=== PATIENT | female | born 1970 | race Two or more races ===

== ENCOUNTER 2023-09-28 17:49 | Emergency (ER) | payer OTHER ==
[~2023-09-28] VITALS: Ht 165.1 cm; Wt 73.0 kg
[2023-09-28] MEDS ORDERED: METOCLOPRAMIDE HCL 10 MG in DEXTROSE 5 % IN WATER 50 ML IV ONE (19:15)
[2023-09-28] MEDS ORDERED: METHYLPREDNISOLONE SOD SUCC 125 MG VIAL IV ONE (19:15)
[2023-09-28] MEDS ORDERED: 0.9 % SODIUM CHLORIDE 500 ML IV ONE (19:15)
[2023-09-28] MEDS ORDERED: FAMOTIDINE/PF 20 MG/2 ML VIAL IV ONE (19:15)
[2023-09-28 19:50] LABS: HEMATOCRIT 31.4 % (36.0-45.00); HEMOGLOBIN 10.4 g/dL (12.0-15.00); MEAN CELL VOLUME 80.3 fL (80.00-100.00); MEAN CORPUSCULAR HEMOGLOBIN 26.7 pg (27.00-32.0); MEAN CORPUSCULAR HGB CONC 33.2 g/dl (32.0-36.0); PLATELET COUNT 359 K/uL (150-450); RED BLOOD COUNT 3.91 M/uL (4.00-6.00); RED CELL DISTRIBUTION WIDTH 15.6 % (11.5-14.5)
[2023-09-28 20:29] LABS: URINE APPEARANCE Clear; URINE BILIRRUBIN Negative (NEGATIVE); URINE BLOOD Trace; URINE COLOR Yellow; URINE GLUCOSE Negative (NEGATIVE); URINE LEUKOCYTE Small; URINE NITRATE Negative; URINE PROTEIN Negative (NEGATIVE); URINE UROBILINOGEN 0.2 E.U./dl
[2023-09-28 20:33] LABS: URINE BACTERIA 231.7 uL (0.0-1933); URINE EPITHELIAL CELLS 32.4 uL (0.0-38.8); URINE WBC 33.5 uL (0.0-23.2)
[2023-09-28 20:44] LABS: ALBUMIN 3.8 gm/dL (3.4-5.0); BILIRUBIN TOTAL 0.81 mg/dL (0.3-1.2); CALCIUM 9.1 mg/dL (8.5-10.1); CREATININE SERUM 0.78 mg/dL (0.55-1.02); GFR 77.86; GLOBULINA 3.4 G/DL (2.4-3.5); POTASSIUM 3.58 mEq/L (3.5-5.1); TOTAL PROTEIN 7.2 gm/dL (6.4-8.2)
[2023-09-28] MEDS ORDERED: METRONIDAZOLE500 MG PO (22:59)
[2023-09-28] MEDS ORDERED: CIPRO500 MG PO (22:59)
[2023-09-28] MEDS ORDERED: INTESTINEX680 M1 PO (22:59)
[2023-09-28] MEDS ORDERED: DICYCLOMINE HCL 20 MG TABLET PO ONE (23:00)
[2023-09-28] MEDS ORDERED: CEFTRIAXONE SODIUM 1,000 MG VIAL IV ONE (23:00)
[2023-09-28] MEDS ORDERED: ONDANSETRON ODT8 MG SL (23:00)
[2023-09-28] MEDS ORDERED: METRONIDAZOLE/SODIUM CHLORIDE 500 MG/100 ML PIGGYBACK IV ONE (23:00)
[2023-09-28] MEDS ORDERED: ONDANSETRON ODT8 MG PO (23:01)
== END 2023-09-29 00:22 ==
LOC: ER 17:49
PROVIDERS: Nurse Practitioner Family
DX: K57.32 Diverticulitis of large intestine without perforation or abscess without bleeding (principal); R10.13 Epigastric pain

== ENCOUNTER 2024-01-17 09:47 | Emergency (ER) | payer OTHER ==
[~2024-01-17] VITALS: Ht 165.1 cm; Wt 68.0 kg
[~2024-01-17 09:47] MED LIST: CIPRO500 MG PO; INTESTINEX680 M1 PO; METRONIDAZOLE500 MG PO; ONDANSETRON ODT8 MG PO; ONDANSETRON ODT8 MG SL
[2024-01-17] MEDS ORDERED: LINZESS290 MCG PO (10:15)
[2024-01-17 11:52] LABS: HEMOGLOBIN 9.1 g/dL (12.0-15.00); MEAN CORPUSCULAR HEMOGLOBIN 23.6 pg (27.00-32.0); MEAN CORPUSCULAR HGB CONC 32.4 g/dl (32.0-36.0); PLATELET COUNT 340 K/uL (150-450); RED BLOOD COUNT 3.83 M/uL (4.00-6.00); RED CELL DISTRIBUTION WIDTH 17.5 % (11.5-14.5)
[2024-01-17] MEDS ORDERED: DICYCLOMINE HCL 20 MG TABLET PO STA (12:00)
[2024-01-17 12:24] LABS: CALCIUM 9.1 mg/dL (8.5-10.1); CREATININE SERUM 0.72 mg/dL (0.55-1.02); GFR 85.06; POTASSIUM 3.87 mEq/L (3.5-5.1)
[2024-01-17 12:32] LABS: URINE APPEARANCE Clear; URINE BILIRRUBIN Negative (NEGATIVE); URINE BLOOD Negative; URINE COLOR Yellow; URINE GLUCOSE Negative (NEGATIVE); URINE LEUKOCYTE Trace; URINE NITRATE Negative; URINE PROTEIN Negative (NEGATIVE); URINE UROBILINOGEN 0.2 E.U./dl
[2024-01-17 12:37] LABS: URINE BACTERIA 302.3 uL (0.0-1933); URINE WBC 17.6 uL (0.0-23.2)
[2024-01-17 12:46] LABS: URINE RBC 1.9 uL (0.0-20.8)
[2024-01-17] MEDS ORDERED: FAMOtidine 10 MG/ML (4ML VIAL) IV STA (16:31)
[2024-01-17] MEDS ORDERED: 0.9 % SODIUM CHLORIDE 1,000 ML IV STA (16:32)
[2024-01-17] MEDS ORDERED: HYOSCYAMINE SULFATE 0.125 MG TAB.SUBL SL ONE (17:00)
== END 2024-01-17 14:19 | disposition home or self-care (01) ==
LOC: ER 09:48
PROVIDERS: General Practice
DX: N39.0 Urinary tract infection, site not specified (principal); R10.2 Pelvic and perineal pain; R10.9 Unspecified abdominal pain; Z88.6 Allergy status to analgesic agent

== ENCOUNTER 2024-04-16 09:44 | Outpatient (CLI) | payer OTHER ==
[~2024-04-16 09:44] MED LIST changes: +LINZESS290 MCG PO
== END 2024-04-17 14:13 | disposition home or self-care (01) ==
LOC: RAD 09:44
PROVIDERS: ATTEND Obstetrics & Gynecology
DX: M25.562 Pain in left knee (principal)
CPT/HCPCS: 73721

== ENCOUNTER 2024-05-02 08:08 | Outpatient (CLI) | payer OTHER | END 2024-05-02 08:16 | disposition home or self-care (01) | LOC: MAMO-SONO 08:08 | PROVIDERS: ATTEND Obstetrics & Gynecology | DX: N60.11 Diffuse cystic mastopathy of right breast (principal) ==

== ENCOUNTER 2024-08-29 14:06 | Outpatient (CLI) | payer OTHER ==
[2024-08-31] MEDS ORDERED: TRULANCE3 MG PO (12:39)
== END 2024-08-29 14:20 | disposition home or self-care (01) ==
LOC: RAD 14:06
PROVIDERS: ATTEND Obstetrics & Gynecology Gynecology
DX: Z01.818 Encounter for other preprocedural examination (principal)

== ENCOUNTER 2024-08-31 14:15 | Inpatient (IN) | payer OTHER ==
[~2024-08-31] VITALS: Ht 165.1 cm; Wt 70.3 kg
[2024-08-31 12:39] VITALS: BP 97/70
[~2024-08-31 14:15] MED LIST changes: +TRULANCE3 MG PO
[2024-09-05] MEDS ORDERED: LIDOCAINE HCL 1%/EPINEPHRINE 20ML VIAL IJ ONE (07:13)
[2024-09-05] MEDS ORDERED: BUPIVACAINE HCL/MPF 0.5% 30ML VIAL ONE (07:13)
[2024-09-05] MEDS ORDERED: CHLORHEXIDINE GLUCONATE 120 ML BOTTLE TOP ONE ×2 (07:13→09:00)
[2024-09-05] MEDS ORDERED: HEMOSTATIC MATRIX 1 KIT KIT TOP ONE (07:13)
[2024-09-05] MEDS ORDERED: POVIDONE-IODINE 118 ML BOTT TOP ONE ×2 (07:13→09:30)
[2024-09-05] MEDS ORDERED: CEFAZOLIN SODIUM 1,000 MG VIAL ONE (07:14)
[2024-09-05] MEDS ORDERED: SURGIFLO APPLICATOR 1 EACH APPL TOP ONE (07:34)
[2024-09-05] MEDS ORDERED: LIDOCAINE HCL 1% 20 ML VIAL IJ ONE (07:34)
[2024-09-05] MEDS ORDERED: CEFAZOLIN SODIUM 2,000 MG in DEXTROSE 5 % IN WATER 100 ML IV ONE (09:00)
[2024-09-05] MEDS ORDERED: CEFAZOLIN SODIUM 1,000 MG VIAL IV ONE (09:00)
[2024-09-05] MEDS ORDERED: METHYLENE BLUE 50MG/10ML AMP IV ONE (09:39)
[2024-09-05] MEDS ORDERED: SUGAMMADEX SODIUM 200 MG/2 ML VIAL IV ONE (10:43)
[2024-09-05] MEDS ORDERED: MORPHINE SULFATE 4 MG/ML VIAL IV ONE ×2 (11:50→13:15)
[2024-09-05] MEDS ORDERED: PROMETHAZINE HCL 25 MG/ML AMPUL IV SCH (12:00)
[2024-09-05] MEDS ORDERED: MEPERIDINE HCL/PF 25 MG/ML VIAL IV SCH (13:00)
[2024-09-05 16:28] VITALS: BP 97/60
[2024-09-05] MEDS ORDERED: SIMETHICONE 125 MG CAPSULE PO SCH (17:00)
[2024-09-05] MEDS ORDERED: ENOXAPARIN SODIUM 40 MG/0.4 ML SYRINGE SUBCUTANEO SCH (21:00)
[2024-09-05 22:14] LABS: HEMATOCRIT 22.9 % (36.0-45.00); MEAN CELL VOLUME 76.5 fL (80.00-100.00); MEAN CORPUSCULAR HGB CONC 32.8 g/dl (32.0-36.0); PLATELET COUNT 307 K/uL (150-450); RED BLOOD COUNT 2.99 M/uL (4.00-6.00); RED CELL DISTRIBUTION WIDTH 16.1 % (11.5-14.5)
[2024-09-05 22:15] LABS: HEMOGLOBIN 7.5 g/dL (12.0-15.00)
[2024-09-05 22:30] LABS: BILIRUBIN TOTAL 0.56 mg/dL (0.3-1.2); CALCIUM 8.4 mg/dL (8.5-10.1); CREATININE SERUM 0.62 mg/dL (0.55-1.02); GFR 101.08; GLOBULINA 2.7 G/DL (2.4-3.5); POTASSIUM 4.32 mEq/L (3.5-5.1); TOTAL PROTEIN 5.7 gm/dL (6.4-8.2)
[2024-09-05] MEDS ORDERED: SOD FERRIC GLUC COMPLX/SUCROSE 125 MG in 0.9 % SODIUM CHLORIDE 100 ML IV SCH (22:39)
[2024-09-06] VITALS: BP 98/63
[2024-09-06] MEDS ORDERED: SOD FERRIC GLUC COMPLX/SUCROSE 62.5 MG/5 ML AMPUL IV ONE ×2 (02:25→02:43)
[2024-09-06] MEDS ORDERED: RINGERS SOLUTION,LACTATED 1,000 ML IV.SOLN ONE (07:46)
[2024-09-06] MEDS ORDERED: OxyCODONE HCL/APAP UD (PERCOCET) PO STA (08:07)
[2024-09-06 08:32] LABS: MEAN CELL VOLUME 77.5 fL (80.00-100.00); MEAN CORPUSCULAR HGB CONC 31.9 g/dl (32.0-36.0); PLATELET COUNT 304 K/uL (150-450); RED BLOOD COUNT 3.02 M/uL (4.00-6.00); RED CELL DISTRIBUTION WIDTH 16.2 % (11.5-14.5)
[2024-09-06 08:33] LABS: MEAN CORPUSCULAR HEMOGLOBIN 24.8 pg (27.00-32.0)
[2024-09-06 08:34] LABS: HEMATOCRIT 23.4 % (36.0-45.00); HEMOGLOBIN 7.5 g/dL (12.0-15.00)
[2024-09-06 08:38] VITALS: BP 140/70
[2024-09-06] MEDS ORDERED: BISACODYL 5 MG TABLET.EC PO SCH (09:00)
[2024-09-06] MEDS ORDERED: GABAPENTIN 300 MG CAPSULE PO SCH (09:00)
[2024-09-06 09:52] LABS: ALBUMIN 2.8 gm/dL (3.4-5.0); BILIRUBIN TOTAL 0.57 mg/dL (0.3-1.2); CALCIUM 8.4 mg/dL (8.5-10.1); CREATININE SERUM 0.66 mg/dL (0.55-1.02); GFR 94.04; GLOBULINA 2.7 G/DL (2.4-3.5); POTASSIUM 4.17 mEq/L (3.5-5.1); TOTAL PROTEIN 5.5 gm/dL (6.4-8.2)
[2024-09-06 16:36] VITALS: BP 95/61
[2024-09-06 19:13] LABS: HEMATOCRIT 29.6 % (36.0-45.00); HEMOGLOBIN 9.5 g/dL (12.0-15.00); MEAN CELL VOLUME 80.2 fL (80.00-100.00); MEAN CORPUSCULAR HEMOGLOBIN 25.7 pg (27.00-32.0); PLATELET COUNT 284 K/uL (150-450); RED BLOOD COUNT 3.69 M/uL (4.00-6.00); RED CELL DISTRIBUTION WIDTH 16.4 % (11.5-14.5)
[2024-09-07] VITALS: BP 99/64
[2024-09-07 08:00] VITALS: BP 101/61
[2024-09-07] MEDS ORDERED: BUTALB/ACETAMINOPHEN/CAFFEINE 1 TAB TABLET PO NR (08:30)
[2024-09-07] MEDS ORDERED: SOD FERRIC GLUC COMPLX/SUCROSE 125 MG in 0.9 % SODIUM CHLORIDE 100 ML IV SCH (09:00)
== END 2024-09-07 10:50 | disposition home or self-care (01) | DRG 742 ==
LOC: O/R 09-05 05:32 → OB/GYN 09-05 05:32 → SURH 09-05 08:30 → OB/GYN 09-05 13:49 → SURH 09-05 16:54 → OB/GYN 09-07 10:50
PROVIDERS: ADMIT Obstetrics & Gynecology; ATTEND Obstetrics & Gynecology
PROC: 0UT74ZZ Resection of Bilateral Fallopian Tubes, Percutaneous Endoscopic Approach (ICD-10-PCS; 2024-09-05)
PROC: 0UT04ZZ Resection of Right Ovary, Percutaneous Endoscopic Approach (ICD-10-PCS; 2024-09-05)
PROC: 0JQC0ZZ Repair Pelvic Region Subcutaneous Tissue and Fascia, Open Approach (ICD-10-PCS; 2024-09-05)
PROC: 0UT94ZZ Resection of Uterus, Percutaneous Endoscopic Approach (ICD-10-PCS; principal; 2024-09-05 08:30)
PROC: 30233N1 Transfusion of Nonautologous Red Blood Cells into Peripheral Vein, Percutaneous Approach (ICD-10-PCS; 2024-09-06)
DX: D25.9 Leiomyoma of uterus, unspecified (principal); D62 Acute posthemorrhagic anemia; N93.9 Abnormal uterine and vaginal bleeding, unspecified; N80.03 Adenomyosis of the uterus

== ENCOUNTER 2025-06-18 09:40 | Emergency (ER) | payer OTHER ==
[~2025-06-18] VITALS: Ht 165.1 cm; Wt 71.7 kg
[2025-06-18 09:51] VITALS: BP 133/83; O2SAT 99
[2025-06-18] MEDS ORDERED: 0.9 % SODIUM CHLORIDE 1,000 ML IV SCH (10:30)
[2025-06-18] MEDS ORDERED: ONDANSETRON HCL 2 MG/ML VIAL IV ONE (10:30)
[2025-06-18] MEDS ORDERED: FAMOTIDINE/PF 20 MG/2 ML VIAL IV PUSH ONE (10:30)
[2025-06-18] MEDS ORDERED: MORPHINE SULFATE 2 MG/ML SYRINGE IV ONE (10:30)
[2025-06-18] MEDS ORDERED: FAMOTIDINE/PF 20 MG/2 ML VIAL ONE (10:38)
[2025-06-18] MEDS ORDERED: ONDANSETRON HCL 2 MG/ML VIAL ONE (10:40)
[2025-06-18 11:42] LABS: BASO % 0.6 % (0.1-1.2); EOS # 0.06 (0.04-0.54); EOS % 0.7 % (0.7-7.0); LYMPH # 1.58 (1.18-3.74); LYMPH % 17.9 % (19.3-53.1); MEAN PLATELET VOLUME 10.20 fl (9.4-12.4); MONO # 0.52 (0.24-0.82); MONO % 5.9 % (4.7-12.5); NEUT # 6.61 (1.56-6.13); NEUT % 74.7 % (34.0-71.1); RED CELL DISTRIBUTION WIDTH 13.5 % (11.6-14.4)
[2025-06-18 11:47] LABS: ERYTHROCYTE SEDIMENTATION RATE 38 mm/hr (0-30)
[2025-06-18 12:37] LABS: ALT/SGPT 30.0 U/L (12-78); AST/SGOT 21.0 U/L (15-37); BILIRUBIN TOTAL 1.02 mg/dL (0.3-1.2); BUN CREA RATIO 17.0 (7.0-25.0); CREATININE SERUM 0.72 mg/dL (0.55-1.02); GFR 84.73; GLOBULINA 3.5 G/DL (2.4-3.5); GLUCOSE FASTING 90.0 mg/dL (65-100); OSMOLALITY SERUM 284.0 MOSM/KG (275-295)
[2025-06-18] MEDS ORDERED: PIPERACILLIN/TAZOBACTAM SODIUM 3.375 GM VIAL IV ONE (13:45)
[2025-06-18] MEDS ORDERED: CIPROFLOXACIN IN 5 % DEXTROSE 400 MG/200 ML PIGGYBAG IV ONE ×2 (15:22→15:30)
[2025-06-18] MEDS ORDERED: METRONIDAZOLE/SODIUM CHLORIDE 500 MG/100 ML PIGGYBACK IV ONE ×2 (15:22→15:30)
[2025-06-18 15:39] LABS: URINE APPEARANCE Clear; URINE BILIRRUBIN Negative (NEGATIVE); URINE BLOOD Negative; URINE COLOR Yellow; URINE GLUCOSE Negative (NEGATIVE); URINE KETONE 15 (NEGATIVE); URINE LEUKOCYTE Negative; URINE NITRATE Negative; URINE PROTEIN Negative (NEGATIVE); URINE UROBILINOGEN 0.2 E.U./dl
[2025-06-18 15:43] LABS: URINE BACTERIA 44.5 uL (0.0-1933); URINE EPITHELIAL CELLS 6.7 uL (0.0-38.8); URINE RBC 5.3 uL (0.0-20.8)
[2025-06-18 15:49] LABS: URINE CAST 0.00 uL (0.0-1.40); URINE WBC 0.9 uL (0.0-23.2)
[2025-06-19] MEDS ORDERED: PEPCID AC20 MG PO (17:54)
[2025-06-19] MEDS ORDERED: AMOX TR-K250 MG/5 M PO (17:54)
== END 2025-06-18 19:08 | disposition home or self-care (01) ==
LOC: ER 09:41 → MEDJ 06-20 13:34 → ER 06-20 13:34
PROVIDERS: General Practice
DX: K57.32 Diverticulitis of large intestine without perforation or abscess without bleeding (principal); Z88.6 Allergy status to analgesic agent; K57.30 Diverticulosis of large intestine without perforation or abscess without bleeding

== ENCOUNTER 2025-06-19 16:40 | Inpatient (IN) | payer OTHER ==
[~2025-06-19] VITALS: Ht 165.1 cm; Wt 81.6 kg
[2025-06-19] MEDS ORDERED: PEPCID AC20 MG PO (17:54)
[2025-06-19] MEDS ORDERED: AMOX TR-K250 MG/5 M PO (17:54)
[2025-06-19] MEDS ORDERED: CIPROFLOXACIN IN 5 % DEXTROSE 400 MG/200 ML PIGGYBAG IV STA (18:14)
[2025-06-19] MEDS ORDERED: DIATRIZOATE MEGLUMINE, SODIUM 30 ML BOTTLE PO STA (18:14)
[2025-06-19] MEDS ORDERED: METRONIDAZOLE/SODIUM CHLORIDE 500 MG/100 ML PIGGYBACK IV STA (18:15)
[2025-06-19] MEDS ORDERED: FAMOTIDINE/PF 20 MG/2 ML VIAL IV PUSH STA (18:15)
[2025-06-19] MEDS ORDERED: ONDANSETRON HCL 2 MG/ML VIAL IV STA (18:15)
[2025-06-19] MEDS ORDERED: TRAMADOL HCL 50 MG TABLET PO STA (18:15)
[2025-06-19] MEDS ORDERED: 0.9 % SODIUM CHLORIDE 1,000 ML IV STA (18:16)
[2025-06-19] MEDS ORDERED: METRONIDAZOLE/SODIUM CHLORIDE 500 MG/100 ML PIGGYBACK IV ONE (18:59)
[2025-06-19] MEDS ORDERED: ONDANSETRON HCL 2 MG/ML VIAL ONE (18:59)
[2025-06-19] MEDS ORDERED: FAMOTIDINE/PF 20 MG/2 ML VIAL ONE (18:59)
[2025-06-19] MEDS ORDERED: CIPROFLOXACIN IN 5 % DEXTROSE 400 MG/200 ML PIGGYBAG IV ONE (18:59)
[2025-06-19] MEDS ORDERED: DIATRIZOATE MEGLUMINE, SODIUM 30 ML BOTTLE ONE (18:59)
[2025-06-19 19:26] LABS: BASO % 0.3 % (0.1-1.2); EOS # 0.02 (0.04-0.54); EOS % 0.2 % (0.7-7.0); LYMPH # 2.06 (1.18-3.74); LYMPH % 18.1 % (19.3-53.1); MEAN PLATELET VOLUME 9.90 fl (9.4-12.4); MONO # 0.57 (0.24-0.82); MONO % 5.0 % (4.7-12.5); NEUT # 8.65 (1.56-6.13); NEUT % 76.1 % (34.0-71.1); RED CELL DISTRIBUTION WIDTH 13.2 % (11.6-14.4)
[2025-06-19 19:29] LABS: ERYTHROCYTE SEDIMENTATION RATE 76 mm/hr (0-30)
[2025-06-19 20:01] LABS: ALT/SGPT 27.0 U/L (12-78); AST/SGOT 17.0 U/L (15-37); BILIRUBIN TOTAL 0.76 mg/dL (0.3-1.2); BUN CREA RATIO 19.0 (7.0-25.0); CREATININE SERUM 0.84 mg/dL (0.55-1.02); GFR 70.92; GLOBULINA 4.1 G/DL (2.4-3.5); GLUCOSE FASTING 89.0 mg/dL (65-100); OSMOLALITY SERUM 280.0 MOSM/KG (275-295)
[2025-06-19] MEDS ORDERED: ONDANSETRON HCL 2 MG/ML VIAL IV SCH (23:08)
[2025-06-19] MEDS ORDERED: FAMOTIDINE/PF 20 MG/2 ML VIAL IV PUSH SCH (23:08)
[2025-06-19] MEDS ORDERED: METRONIDAZOLE/SODIUM CHLORIDE 500 MG/100 ML PIGGYBACK IV SCH (23:15)
[2025-06-20] MEDS ORDERED: ONDANSETRON HCL 2 MG/ML VIAL ONE ×3 (01:25→13:54)
[2025-06-20] MEDS ORDERED: FAMOTIDINE/PF 20 MG/2 ML VIAL ONE ×3 (01:26→13:55)
[2025-06-20] MEDS ORDERED: ACETAMINOPHEN 500 MG GEL..CAP PO ONE (06:33)
[2025-06-20] MEDS ORDERED: CEFTRIAXONE SODIUM 2,000 MG VIAL ONE (07:48)
[2025-06-20] MEDS ORDERED: CEFTRIAXONE SODIUM 2,000 MG VIAL IV SCH (09:00)
[2025-06-20] MEDS ORDERED: CIPROFLOXACIN IN 5 % DEXTROSE 200 ML IV SCH (13:41)
[2025-06-20] MEDS ORDERED: LACTOBACILLUS ACIDOPHILUS 1 CAP CAP PO SCH (13:42)
[2025-06-20] MEDS ORDERED: FAMOTIDINE/PF 20 MG in 0.9 % SODIUM CHLORIDE 100 ML IV SCH (13:42)
[2025-06-20] MEDS ORDERED: 0.9 % SODIUM CHLORIDE 1,000 ML IV SCH ×2 (13:45)
[2025-06-20] MEDS ORDERED: ONDANSETRON HCL 4 MG in 0.9 % SODIUM CHLORIDE 50 ML IV PRN (13:45)
[2025-06-20] MEDS ORDERED: CIPROFLOXACIN IN 5 % DEXTROSE 400 MG/200 ML PIGGYBAG IV ONE (13:54)
[2025-06-20] MEDS ORDERED: METRONIDAZOLE/SODIUM CHLORIDE 500 MG/100 ML PIGGYBACK IV ONE (13:54)
[2025-06-20] MEDS ORDERED: LACTOBACILLUS ACIDOPHILUS 1 CAP CAP PO ONE (13:55)
[2025-06-20] MEDS ORDERED: MORPHINE SULFATE 2 MG/ML SYRINGE IV SCH (14:00)
[2025-06-20] MEDS ORDERED: ACETAMINOPHEN 500 MG GEL..CAP PO SCH (14:00)
[2025-06-20 14:17] VITALS: BP 130/60
[2025-06-20] MEDS ORDERED: MORPHINE SULFATE 2 MG/ML SYRINGE IV PRN (14:30)
[2025-06-20 14:32] VITALS: BP 135/60; O2SAT 98
[2025-06-20 16:25] VITALS: BP 102/62; O2SAT 98
[2025-06-20] MEDS ORDERED: MORPHINE SULFATE 4 MG/ML VIAL IV PRN (16:45)
[2025-06-21] MEDS ORDERED: METRONIDAZOLE/SODIUM CHLORIDE 500 MG/100 ML PIGGYBACK IV SCH (01:00)
[2025-06-21 03:05] VITALS: BP 110/70; O2SAT 97
[2025-06-21 06:21] LABS: BASO % 1.0 % (0.1-1.2); EOS # 0.09 (0.04-0.54); EOS % 1.4 % (0.7-7.0); LYMPH # 1.78 (1.18-3.74); LYMPH % 28.4 % (19.3-53.1); MEAN PLATELET VOLUME 10.80 fl (9.4-12.4); MONO # 0.41 (0.24-0.82); MONO % 6.5 % (4.7-12.5); NEUT # 3.90 (1.56-6.13); NEUT % 62.4 % (34.0-71.1); RED CELL DISTRIBUTION WIDTH 13.2 % (11.6-14.4)
[2025-06-21 06:25] LABS: INR 1.09
[2025-06-21 06:53] LABS: BUN CREA RATIO 14.0 (7.0-25.0); CREATININE SERUM 0.49 mg/dL (0.55-1.02); GFR 132.11; GLUCOSE FASTING 51.0 mg/dL (65-100); OSMOLALITY SERUM 278.0 MOSM/KG (275-295)
[2025-06-21] MEDS ORDERED: LACTOBACILLUS ACIDOPHILUS 1 CAP CAP PO SCH (09:00)
[2025-06-21 10:14] VITALS: BP 119/86; O2SAT 99
[2025-06-21] MEDS ORDERED: ONDANSETRON HCL 2 MG/ML VIAL IV SCH (17:00)
[2025-06-21] MEDS ORDERED: FAMOTIDINE/PF 20 MG in 0.9 % SODIUM CHLORIDE 100 ML IV SCH (17:00)
[2025-06-21 21:32] VITALS: BP 119/70
[2025-06-22 01:02] VITALS: BP 111/67; O2SAT 97
[2025-06-22 10:23] VITALS: BP 123/76; O2SAT 99
[2025-06-22 17:47] VITALS: BP 122/73; O2SAT 98
[2025-06-22] MEDS ORDERED: PROMETHAZINE HCL 25 MG/ML AMPUL IM ONE (20:30)
[2025-06-23 02:30] VITALS: BP 118/72; O2SAT 97
[2025-06-23 10:03] VITALS: BP 122/82; O2SAT 99
[2025-06-23 18:22] VITALS: BP 110/70; O2SAT 97
[2025-06-24 01:08] VITALS: BP 127/54; O2SAT 96
[2025-06-24 06:24] LABS: BASO % 0.9 % (0.1-1.2); EOS # 0.15 (0.04-0.54); EOS % 3.3 % (0.7-7.0); LYMPH # 1.83 (1.18-3.74); LYMPH % 40.3 % (19.3-53.1); MEAN PLATELET VOLUME 10.60 fl (9.4-12.4); MONO # 0.42 (0.24-0.82); MONO % 9.3 % (4.7-12.5); NEUT # 2.09 (1.56-6.13); NEUT % 46.0 % (34.0-71.1); RED CELL DISTRIBUTION WIDTH 13.2 % (11.6-14.4)
[2025-06-24 06:55] LABS: BUN CREA RATIO 5.0 (7.0-25.0); CREATININE SERUM 0.74 mg/dL (0.55-1.02); GFR 82.09; GLUCOSE FASTING 93.0 mg/dL (65-100); OSMOLALITY SERUM 285.0 MOSM/KG (275-295)
[2025-06-24 08:24] VITALS: BP 108/69; O2SAT 95
[2025-06-24] MEDS ORDERED: MAGNESIUM SULFATE IN WATER 4 GM/100 ML PIGGYBACK IV NR (16:00)
[2025-06-24] MEDS ORDERED: MULTIVIT INFUSN,ADULT 4,VIT K 10 ML VIAL IV SCH (17:00)
[2025-06-24 21:29] VITALS: BP 105/71
[2025-06-25 00:51] VITALS: BP 105/63; O2SAT 97
[2025-06-25 10:37] VITALS: BP 102/72; O2SAT 96
[2025-06-25] MEDS ORDERED: BUTALB/ACETAMINOPHEN/CAFFEINE 1 TAB TABLET PO PRN (11:00)
[2025-06-25] MEDS ORDERED: BUTALB/ACETAMINOPHEN/CAFFEINE 1 TAB TABLET PO STA (11:00)
[2025-06-25] MEDS ORDERED: ONDANSETRON HCL 2 MG/ML VIAL IV PRN (11:02)
[2025-06-25] MEDS ORDERED: FAMOTIDINE/PF 20 MG/2 ML VIAL ONE (16:41)
[2025-06-26 01:46] VITALS: BP 117/70; O2SAT 96
[2025-06-26 09:05] VITALS: BP 122/76; O2SAT 97
[2025-06-26] MEDS ORDERED: PEPCID40 MG PO (19:36)
[2025-06-26] MEDS ORDERED: INTESTINEX680 M2 PO (19:36)
[2025-06-26] MEDS ORDERED: SIMETHICONE80 MG PO (19:36)
[2025-06-26] MEDS ORDERED: PROTONIX40 MG PO (19:36)
== END 2025-06-26 19:39 | disposition home or self-care (01) | DRG 392 ==
LOC: ER 16:40 → MEDJ 06-20 16:09 → SEC-K 06-20 16:09 → MEDJ 06-20 16:35
PROVIDERS: General Practice; Internal Medicine Geriatric Medicine; ADMIT Internal Medicine; ATTEND Internal Medicine
PROC: BW21ZZZ Computerized Tomography (CT Scan) of Abdomen and Pelvis (ICD-10-PCS; principal; 2025-06-19)
DX: K57.12 Diverticulitis of small intestine without perforation or abscess without bleeding (principal); K59.09 Other constipation